=== PATIENT | female | born 1990 | race African-American/Black ===

== ENCOUNTER 2016-10-31 16:08 | Emergency (ER) | payer OTHER ==
[~2016-10-31] VITALS: Ht 154.9 cm; Wt 46.7 kg
[~2016-10-31 16:08] MED LIST: HYDR-971 PO; NAPR500T3 PO; NAPR550T PO; ORPH100T PO
[2016-10-31 16:25] VITALS: BP 102/38
[2016-10-31 17:27] LABS: BILIRUBIN,URINE NEGATIVE (NEG); GLUCOSE,URINE NEGATIVE (NEG); NITRITE,URINE NEGATIVE (NEG); PH,URINE 6.5; PROTEIN,URINE 30 mg/dL (NEG-TRACE)
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
[2016-10-31 17:46] LABS: BACTERIA,URINE MODERATE /HPF (0-FEW); SQUAMOUS EPITHELIAL CELL,UR MANY /LPF; WBC,URINE >40 /HPF (0-4)
[2016-10-31] MEDS ORDERED: NAPROXEN 500 MG TABLET PO ONE (18:00)
[2016-10-31] MEDS ORDERED: NITR100C62 PO (18:27)
== END 2016-10-31 18:41 | disposition home or self-care (01) ==
LOC: ER 16:08
DX: N39.0 Urinary tract infection, site not specified (principal); F43.10 Post-traumatic stress disorder, unspecified; J45.909 Unspecified asthma, uncomplicated; F17.210 Nicotine dependence, cigarettes, uncomplicated
CPT/HCPCS: 81001; 81025; 87086; 87491; 87591; 99284; Q0111

== ENCOUNTER 2018-06-23 10:36 | Emergency (ER) | payer SELFPAY ==
[~2018-06-23] VITALS: Ht 154.9 cm; Wt 43.5 kg
[~2018-06-23 10:36] MED LIST changes: +HYDR-3164 PO; -HYDR-971 PO; +NAPR-514 PO; +NAPR-682 PO; -NAPR500T3 PO; -NAPR550T PO; +NITR100C62 PO
[2018-06-23 10:56] VITALS: BP 117/56
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
[2018-06-23 11:07] LABS: BILIRUBIN,URINE NEGATIVE (NEG); CLARITY,URINE CLEAR; COLOR,URINE YELLOW; NITRITE,URINE NEGATIVE (NEG); PROTEIN,URINE NEGATIVE (NEG-TRACE)
[2018-06-23 11:20] LABS: SQUAMOUS EPITHELIAL CELL,UR MOD /LPF
[2018-06-23 11:22] LABS: BACTERIA,URINE FEW /HPF (0-FEW)
[2018-06-23] MEDS ORDERED: PNV1TABL31 PO (11:49)
== END 2018-06-23 11:55 | disposition home or self-care (01) ==
LOC: ER 10:36
DX: O99.89 Other specified diseases and conditions complicating pregnancy, childbirth and the puerperium (principal); O99.511 Diseases of the respiratory system complicating pregnancy, first trimester; J45.909 Unspecified asthma, uncomplicated; Z3A.01 Less than 8 weeks gestation of pregnancy
CPT/HCPCS: 81001; 81025; 99283